=== PATIENT | female | born 1990 | race American Indian/Alaskan Native ===

== ENCOUNTER 2018-10-12 10:59 | Emergency (ER) | payer MEDICAID ==
[2018-10-12 11:22] VITALS: BP 142/78
--- NOTE | 2018-10-12 11:23 | Emergency Department Report ---
Chief Complaint: Dental/Oral Stated Complaint: 6WKS NAUSEA/LEFT JAW PAIN/TOOTH Time Seen by Provider: 10/12/18 11:19 - HPI History of Present Illness: pt states she has right sided dental pain has N/V has not seen dentist pt is 8 weeks , has not seen OB no fever several dental carries present MSE screening note: Focused history and physical exam performed. ED Disposition for MSE Condition: Stable
[2018-10-12] MEDS ORDERED: ZOFRAN ODT PO ONE (12:15)
[2018-10-12] MEDS ORDERED: TYLENOL PO ONE (12:15)
--- NOTE | 2018-10-12 12:20 | Emergency Department Report ---
ED ENT HPI - General Chief complaint: Dental/Oral Stated complaint: 6WKS NAUSEA/LEFT JAW PAIN/TOOTH Time Seen by Provider: 10/12/18 11:19 Source: patient Mode of arrival: Ambulatory Limitations: No Limitations - History of Present Illness Initial comments: Patient is a 27-year-old female who is presenting with several days of right lower jaw pain and swelling. Patient states that she has pain in her teeth and the jaw is swollen for the last 2-3 days. Pain is 6 out of 10 in severity. She has no difficulty swallowing saliva and no problems breathing. Patient is approximately 6 weeks and is very nauseous and vomited 3 times yesterday but none today. Patient denies any fevers cough or congestion. - Related Data Previous Rx's Medication Instructions Recorded Last Taken Type Ondansetron [Zofran Odt] 4 mg PO Q8HR #10 tab.rapdis 10/12/18 Unknown Rx Penicillin V Potassium 500 mg PO BID #14 tablet 10/12/18 Unknown Rx Allergies Allergy/AdvReac Type Severity Reaction Status Date / Time No Known Allergies Allergy Unverified 10/12/18 11:22 ED Dental HPI - General Chief complaint: Dental/Oral Stated complaint: 6WKS NAUSEA/LEFT JAW PAIN/TOOTH Time Seen by Provider: 10/12/18 11:19 Source: patient Mode of arrival: Ambulatory Limitations: No Limitations - Related Data Previous Rx's Medication Instructions Recorded Last Taken Type Ondansetron [Zofran Odt] 4 mg PO Q8HR #10 tab.rapdis 10/12/18 Unknown Rx Penicillin V Potassium 500 mg PO BID #14 tablet 10/12/18 Unknown Rx Allergies Allergy/AdvReac Type Severity Reaction Status Date / Time No Known Allergies Allergy Unverified 10/12/18 11:22 ED Review of Systems ROS: Stated complaint: 6WKS NAUSEA/LEFT JAW PAIN/TOOTH Other details as noted in HPI Comment: All other systems reviewed and negative ED Past Medical Hx - Past Medical History Previous Medical History?: No - Surgical History Past Surgical History?: No - Social History Smoking Status: Never Smoker Substance Use Type: None - Medications Home Medications: Home Medications Medication Instructions Recorded Confirmed Last Taken Type Ondansetron [Zofran Odt] 4 mg PO Q8HR #10 tab.rapdis 10/12/18 Unknown Rx Penicillin V Potassium 500 mg PO BID #14 tablet 10/12/18 Unknown Rx ED Physical Exam - General Limitations: No Limitations General appearance: alert, in no apparent distress - Head Head exam: Present: atraumatic, normocephalic - Eye Eye exam: Present: normal appearance - ENT ENT exam: Present: normal orophraynx, mucous membranes moist, other (pain with palpation of tooth #30 through 32. There is some swelling to the jaw in this area consistent with a facial cellulitis.) - Neck Neck exam: Present: normal inspection, lymphadenopathy - Respiratory Respiratory exam: Present: normal lung sounds bilaterally. Absent: respiratory distress, wheezes, rales, rhonchi - Cardiovascular Cardiovascular Exam: Present: regular rate, normal rhythm. Absent: systolic murmur, diastolic murmur, rubs, gallop - GI/Abdominal GI/Abdominal exam: Present: soft, normal bowel sounds. Absent: distended, tenderness, guarding, rebound, rigid - Extremities Exam Extremities exam: Present: normal inspection - Back Exam Back exam: Present: normal inspection - Neurological Exam Neurological exam: Present: alert, oriented X3 - Psychiatric Psychiatric exam: Present: normal affect, normal mood - Skin Skin exam: Present: warm, dry, intact, normal color. Absent: rash ED Course Vital Signs 10/12/18 11:21 Temperature 98.6 F Pulse Rate 91 H Respiratory 18 Rate Blood Pressure 142/78 O2 Sat by Pulse 99 Oximetry ED Medical Decision Making - Medical Decision Making Patient clinically has a facial cellulitis from a dental abscess. Patient given meds for nausea and she'll be started on Pen-Vee K for the facial cellulitis abscess. Patient referred to dentist for further management and care Critical care attestation.: If time is entered above; I have spent that time in minutes in the direct care of this critically ill patient, excluding procedure time. ED Disposition Clinical Impression: Nausea, Dental abscess, Facial cellulitis Disposition: DC- TO HOME OR SELFCARE Is pt being admited?: No Does the pt Need Aspirin: No Condition: Stable Instructions: Dental Abscess (ED), Morning Sickness (ED) Time of Disposition: 12:20
[2018-10-12] MEDS ORDERED: VEETIDS PO ONE (12:30)
== END 2018-10-12 13:01 | disposition home or self-care (01) ==
LOC: ED 10:59
DX: O99.611 Diseases of the digestive system complicating pregnancy, first trimester (principal); K04.7 Periapical abscess without sinus; O21.9 Vomiting of pregnancy, unspecified; Z3A.01 Less than 8 weeks gestation of pregnancy
CPT/HCPCS: 99282; Q0162

== ENCOUNTER 2019-03-17 12:35 | Outpatient (CLI) | payer MEDICAID ==
[2019-03-17] MEDS ORDERED: LACTATED RINGERS 500 ML IV ONE (13:49)
[2019-03-17 13:55] VITALS: BP 111/70
[2019-03-17] MEDS ORDERED: LACTATED RINGERS 1,000 ML IV SCH (14:00)
[2019-03-17 14:12] LABS: Bacteria,Urine 3+ /HPF (Negative); Bilirubin,Urine NEG (Negative); Blood,Urine MOD (Negative); Color,Urine Amber (Yellow); Mucus,Urine 1+ /HPF
[2019-03-17 14:26] LABS: Amphetamine Screen,Urine PRESUMPTIVE NEGATIVE; Benzodiazepines Screen,Urine PRESUMPTIVE NEGATIVE; Cannabinoid Screen,Urine PRESUMPTIVE NEGATIVE; Cocaine Screen,Urine PRESUMPTIVE NEGATIVE; Methadone Screen,Urine PRESUMPTIVE NEGATIVE; Opiate Screen,Urine PRESUMPTIVE NEGATIVE
[2019-03-17] MEDS ORDERED: ceFAZolin 2 GM in NACL 0.9% 100 ML IV ONE (16:30)
== END 2019-03-17 17:27 | disposition home or self-care (01) ==
LOC: TRG 12:35
PROVIDERS: ATTEND Obstetrics & Gynecology
DX: O62.9 Abnormality of forces of labor, unspecified (principal); O26.893 Other specified pregnancy related conditions, third trimester; R10.9 Unspecified abdominal pain; Z3A.31 31 weeks gestation of pregnancy
CPT/HCPCS: 59025; 80307; 81001; 87086; 96361; 96365; J0690; J7120; 96360

== ENCOUNTER 2019-05-03 06:32 | Inpatient (IN) | payer MEDICAID ==
[2019-05-03] MEDS ORDERED: LACTATED RINGERS 1,000 ML ONE (06:43)
[2019-05-03] MEDS ORDERED: XYLOCAINE 2% INFILTRATI ONE (06:57)
[2019-05-03] MEDS ORDERED: MINERAL OIL PO PRN (06:57)
[2019-05-03] MEDS ORDERED: ZOFRAN IV PRN ×2 (06:57→10:30)
[2019-05-03] MEDS ORDERED: BRETHINE IVP PRN (06:57)
[2019-05-03] MEDS ORDERED: BRETHINE SUB-Q PRN (06:57)
[2019-05-03] MEDS ORDERED: SUBLIMAZE IV PRN (06:57)
[2019-05-03] MEDS ORDERED: AMPICILLIN/NS 2 GM/100 ML 2 GM/100 ML BAG IV ONE (06:57)
--- NOTE | 2019-05-03 06:57 | History and Physical Report ---
History of Present Illness Date of examination: 05/03/19 Chief complaint: Labor History of present illness: Pt is a 28yo BF EDC 05/13/19; EGA 38 4/7 weeks presents to L&D complaining of RUC's q 3-4 mins and dilated 8cms. She received care at [facility] but records are not available and GBS is unknown. Past History Past Medical History: no pertinent history Past Surgical History: no surgical history [employer] History: abnormal PAP smear, chlamydia, herpes (currently on Valtrex), trichomonas Family/Genetic History: none Social history: no significant social history, single - Obstetrical History Expected Date of Delivery: 05/13/19 Actual Gestation: 38 Week(s) 4 Day(s) : 2 Medications and Allergies Allergies Allergy/AdvReac Type Severity Reaction Status Date / Time No Known Allergies Allergy Verified 03/17/19 13:49 Home Medications Medication Instructions Recorded Confirmed Last Taken Type Ondansetron [Zofran Odt] 4 mg PO Q8HR #10 tab.rapdis 10/12/18 Unknown Rx Penicillin V Potassium 500 mg PO BID #14 tablet 10/12/18 Unknown Rx Review of Systems All systems: negative - Physical Exam Breasts: Positive: deferred Cardiovascular: Regular rate Lungs: Positive: Clear to auscultation Abdomen: Positive: normal appearance Genitourinary (Female): Positive: normal external genitalia Vagina: Positive: normal moisture. Negative: ulceration Uterus: Positive: enlarged Anus/Rectum: Positive: normal perianal skin Extremities: Positive: normal - Obstetrical FHR: category 1 Uterine Contraction Monitor Mode: External Cervical Dilatation: 8.5 Cervical Effacement Percentage: 100 station: 0 Uterine Contraction Pattern: Regular Uterine Tone Measurement Phase: Contraction Uterine Contraction Intensity: Moderate Results Result Diagrams: 05/03/19 06:55 All other labs normal. Assessment and Plan - Patient Problems (1) 38 weeks gestation of Onset Date: 05/03/19 Current Visit: Yes Status: Acute Plan to address problem: A: IUP @ 38 4/7 weeks in labor Unknown GBS P: Admit to L&D for expectant vaginal delivery IV Ampicillin Obtain records
[2019-05-03] MEDS ORDERED: PITOCin/NS 30 UNIT/500ML 30 UNITS/500 ML BAG IV SCH (07:00)
[2019-05-03] MEDS ORDERED: PITOCin/NS 20 UNIT/1000ML DRIP 20 UNITS/1,000 ML BAG IV SCH ×2 (07:00→11:00)
[2019-05-03 07:25] LABS: Hematocrit 34.1 % (30.3-42.9); Hemoglobin 11.1 gm/dl (10.1-14.3); Mean Corpuscular HGB Conc 33 % (30-34); Mean Corpuscular Volume 77 fl (79-97); Platelet Count 243 K/mm3 (140-440); Red Blood Count 4.41 M/mm3 (3.65-5.03); Red Cell Distribution Width 19.2 % (13.2-15.2)
[2019-05-03] MEDS: LACTATED RINGERS 1,000 ML IV SCH ×2 (08:33→11:57)
[2019-05-03] MEDS ORDERED: ADRENALIN ONE (09:10)
--- NOTE | 2019-05-03 09:27 | Anesthesia Consultation ---
Anesthesia Consult and Med Hx Date of service: 05/03/19 - Airway Anesthetic Teeth Evaluation: Good ROM Head & Neck: Adequate Mental/Hyoid Distance: Adequate Mallampati Class: Class II Intubation Access Assessment: Probably Good - Pulmonary Exam CTA: Yes - Cardiac Exam Cardiac Exam: RRR - Pre-Operative Health Status ASA Pre-Surgery Classification: ASA2 Proposed Anesthetic Plan: Epidural - Pulmonary Hx Smoking: No Hx Asthma: No Hx Respiratory Symptoms: No SOB: No COPD: No Home Oxygen Therapy: No Hx Pneumonia: No Hx Sleep Apnea: No - Cardiovascular System Hx Hypertension: No Hx Coronary Artery Disease: No Hx Heart Attack/AMI: No Hx Angina: No Hx Percutaneous Transluminal Coronary Angioplasty (PTCA): No Hx Cardia Arrhythmia: No Hx Pacemaker: No Hx Internal Defibrillator: No Hx Valvular Heart Disease: No Hx Heart Murmur: No Hx Peripheral Vascular Disease: No - Central Nervous System Hx Neuromuscular Disorder: No Hx Seizures: No CVA: No Hx Back Pain: No Hx Psychiatric Problems: No - Gastrointestinal Hx Ulcer: No Hx Gastroesophageal Reflux Disease: No - Endocrine Hx Renal Disease: No Hx End Stage Renal Disease: No Hx Cirrhosis: No Hx Liver Disease: No Hx Insulin Dependent Diabetes: No Hx Non-Insulin Dependent Diabetes: No Hx Thyroid Disease: No Hx Hypothyroidism: No Hx Hyperthyroidism: No - Hematic Hx Anemia: No Hx Sickle Cell Disease: No - Other Systems Hx Alcohol Use: No
[2019-05-03] MEDS ORDERED: MARCAINE 0.25% INFILTRATI ONE (09:36)
--- NOTE | 2019-05-03 09:41 | Procedure Note ---
OB Delivery Note - Delivery Date of Delivery: 05/03/19 Surgeon: PASHA ORR Estimated blood loss: 200cc - Vaginal Delivery presentation: vertex Delivery position: OA Intrapartum events: meconium, precipitous labor- <3hr Delivery induction: none Delivery augmentation: rupture of membranes Delivery monitor: external FHT, external uterine Route of delivery: Delivery placenta: spontaneous Delivery cord: 3 umbilical vessels Episiotomy: none Delivery laceration: 1st degree (labial) Anesthesia: epidural Delivery comments: delivered OA and placed on Mom's chest for [id number] bonding and delayed cord clamping, cut by sister. Peds/RT in attendance for meconium fluid. - A at 1 minute: 8 at 5 minutes: 9 Infant Gender: Female (3747gms)
[2019-05-03] MEDS ORDERED: BENADRYL PO PRN (10:30)
[2019-05-03] MEDS ORDERED: COLACE PO SCH (10:30)
[2019-05-03] MEDS ORDERED: LANSINOH TP PRN (10:30)
[2019-05-03] MEDS ORDERED: NALOXONE IV PRN (10:30)
[2019-05-03] MEDS ORDERED: fentaNYL-BUPIV 2 MCG/ML-0.125% 200 MCG/100 ML BAG EPIDURAL SCH (10:30)
[2019-05-03] MEDS ORDERED: PHENERGAN PO PRN (10:30)
[2019-05-03] MEDS ORDERED: TUCKS PAD TP PRN (10:30)
[2019-05-03] MEDS ORDERED: TYLENOL PO PRN (10:30)
[2019-05-03] MEDS ORDERED: AMPICILLIN/NS 1 GM/50 ML 1 GM/50 ML BAG IV SCH (10:58)
[2019-05-03] MEDS ORDERED: IBUPROFEN PO SCH (11:00)
[2019-05-03] MEDS ORDERED: DULCOLAX PR PRN (11:00)
[2019-05-03] MEDS ORDERED: PHENERGAN PR PRN (11:00)
[2019-05-03] MEDS ORDERED: SODIUM CHLORIDE FLUSH SYRINGE 10 ML IV PRN (11:00)
[2019-05-03] MEDS: PRENATAL VITAMIN PO SCH (11:52)
[2019-05-03] MEDS: FEOSOL PO SCH ×2 (11:52→23:05)
[2019-05-03 15:46] LABS: Bilirubin,Urine NEG (Negative); Blood,Urine LG (Negative); Color,Urine Red (Yellow); Urobilinogen,Urine < 2.0 mg/dL (<2.0)
[2019-05-03 15:56] LABS: RBC,Urine > 182.0 /HPF (0.0-6.0)
[2019-05-03 15:57] LABS: Amphetamine Screen,Urine PRESUMPTIVE NEGATIVE; Benzodiazepines Screen,Urine PRESUMPTIVE NEGATIVE; Cannabinoid Screen,Urine PRESUMPTIVE NEGATIVE; Cocaine Screen,Urine PRESUMPTIVE NEGATIVE; Methadone Screen,Urine PRESUMPTIVE NEGATIVE; Opiate Screen,Urine PRESUMPTIVE NEGATIVE; WBC,Urine > 182.0 /HPF (0.0-6.0)
[2019-05-03] MEDS: MOTRIN PO SCH (18:30)
[2019-05-03] MEDS ORDERED: DERMOPLAST TP PRN (20:51)
[2019-05-03] MEDS: NORCO 5/325 PO PRN (21:02)
[2019-05-03] MEDS ORDERED: MILK OF MAGNESIA PO PRN (22:00)
[2019-05-03 22:49] LABS: Hematocrit 30.8 % (30.3-42.9); Hemoglobin 9.7 gm/dl (10.1-14.3)
[2019-05-03] MEDS: COLACE PO SCH (23:05)
[2019-05-04] MEDS: NORCO 5/325 PO PRN (02:37)
[2019-05-04] MEDS: MOTRIN PO SCH ×4 (05:20→20:21)
[2019-05-04] MEDS ORDERED: BOOSTRIX IM ONE (06:00)
--- NOTE | 2019-05-04 08:45 | Progress Note ---
Assessment and Plan - Patient Problems (1) 38 weeks gestation of Onset Date: 05/03/19 Current Visit: Yes Status: Resolved (2) (normal spontaneous vaginal delivery) Onset Date: 05/04/19 Current Visit: Yes Status: Resolved Plan to address problem: A: S/P - PPD #1 Doing well Asymptomatic anemia - stable P: May go home tomorrow. Subjective - Subjective Date of service: 05/04/19 Principal diagnosis: s/p - PPD #1 Interval history: Pt is feeling well without complaints. Bleeding improved. Patient reports: appetite normal, voiding normally, pain well controlled, flatus, ambulating normally, no dizzy ambulation, no nauseated [place]: doing well, bottle feeding Objective - Vital Signs Latest vital signs: Vital Signs Temp Pulse Resp BP BP Pulse Ox 05/04/19 00:00 98.7 F 69 18 102/79 05/03/19 19:30 98.7 F 66 18 119/78 05/03/19 17:49 97.3 F L 77 18 119/66 05/03/19 11:14 72 124/71 05/03/19 10:56 80 100 05/03/19 10:52 77 122/74 05/03/19 10:51 76 98 05/03/19 10:46 75 100 05/03/19 10:41 89 100 05/03/19 10:38 75 120/69 05/03/19 10:36 74 99 05/03/19 10:32 77 88 05/03/19 10:31 87 99 05/03/19 10:26 93 H 99 05/03/19 10:24 90 128/76 05/03/19 10:23 89 81 L 05/03/19 10:21 92 H 98 05/03/19 10:16 76 125/64 100 05/03/19 10:11 86 100 05/03/19 10:06 80 99 05/03/19 10:01 92 H 100 05/03/19 09:56 91 H 114/72 96 05/03/19 09:55 88 91 05/03/19 09:51 110 H 100 05/03/19 09:46 82 100 05/03/19 09:45 79 L 05/03/19 09:38 83 119/62 05/03/19 09:35 78 130/69 05/03/19 09:22 96 H 121/74 05/03/19 09:19 126 H 116/63 05/03/19 09:17 112 H 105/59 05/03/19 09:16 103 H 121/71 99 05/03/19 09:15 116 H 109/57 05/03/19 09:14 103 H 127/68 05/03/19 09:13 144 H 147/92 05/03/19 09:11 125 H 126/73 97 05/03/19 09:10 134 H 117/58 05/03/19 09:09 82 94/55 05/03/19 09:08 107 H 91/42 05/03/19 09:06 102 H 99 05/03/19 09:05 100 H 87/52 05/03/19 09:01 85 124/71 84 05/03/19 09:00 96 H 97 05/03/19 08:55 101 H 99 05/03/19 08:54 105 H 0 L 05/03/19 08:50 110 H 98 Intake and Output 05/03/19 05/04/19 05/04/19 22:59 06:59 14:59 Intake Total 480 Output Total 900 Balance -420 Intake: Oral 480 Output: Urine 900 Void 900 Other: Total, Intake Amount 480 Total, Output Amount 900 # Voids Void 2 1 - Exam Breasts: Present: deferred Abdomen: Present: normal appearance, soft Uterus: Present: normal, firm, fundal height below umbilicus Extremities: Present: normal - Labs Labs: Abnormal lab results 05/03/19 05/03/19 Range/Units 15:10 21:08 Hgb 9.7 L (10.1-14.3) gm/dl Urine WBC (Auto) > 182.0 H (0.0-6.0) /HPF Laboratory Tests 05/03/19 05/03/19 05/03/19 06:55 06:55 06:55 WBC 10.4 RBC 4.41 Hgb 11.1 Hct 34.1 MCV 77 L MCH 25 L MCHC 33 RDW 19.2 H Plt Count 243 Urine Color Urine Turbidity Urine pH Ur Specific [place] Urine Protein Urine Glucose (UA) Urine Ketones Urine Blood Urine Nitrite Urine Bilirubin Urine Urobilinogen Ur Leukocyte Esterase Urine WBC (Auto) Urine RBC (Auto) U Epithel Cells (Auto) Urine WBC Clumps Urine Opiates Screen Urine Methadone Screen Ur Barbiturates Screen Ur Phencyclidine Scrn Ur Amphetamines Screen U Benzodiazepines Scrn Urine Cocaine Screen U Marijuana (THC) Screen Drugs of Abuse Note Syphilis IgG Antibody Hep Bs Antigen Rubella IgG Antibody Immune Blood Type O POSITIVE Antibody Screen Negative 05/03/19 05/03/19 05/03/19 06:55 06:55 15:10 WBC RBC Hgb Hct MCV MCH MCHC RDW Plt Count Urine Color Red Urine Turbidity Slightly-cloudy Urine pH 7.0 Ur Specific [place] 1.008 Urine Protein 100 mg/dl Urine Glucose (UA) Neg Urine Ketones Neg Urine Blood Lg Urine Nitrite Neg Urine Bilirubin Neg Urine Urobilinogen < 2.0 Ur Leukocyte Esterase Mod Urine WBC (Auto) > 182.0 H Urine RBC (Auto) > 182.0 U Epithel Cells (Auto) 1.0 Urine WBC Clumps 2+ Urine Opiates Screen Urine Methadone Screen Ur Barbiturates Screen Ur Phencyclidine Scrn Ur Amphetamines Screen U Benzodiazepines Scrn Urine Cocaine Screen U Marijuana (THC) Screen Drugs of Abuse Note Syphilis IgG Antibody Non-reactive Hep Bs Antigen Non-reactive Rubella IgG Antibody Blood Type Antibody Screen 05/03/19 05/03/19 15:10 21:08 WBC RBC Hgb 9.7 L Hct 30.8 MCV MCH MCHC RDW Plt Count Urine Color Urine Turbidity Urine pH Ur Specific [place] Urine Protein Urine Glucose (UA) Urine Ketones Urine Blood Urine Nitrite Urine Bilirubin Urine Urobilinogen Ur Leukocyte Esterase Urine WBC (Auto) Urine RBC (Auto) U Epithel Cells (Auto) Urine WBC Clumps Urine Opiates Screen Presumptive negative Urine Methadone Screen Presumptive negative Ur Barbiturates Screen Presumptive negative Ur Phencyclidine Scrn Presumptive negative Ur Amphetamines Screen Presumptive negative U Benzodiazepines Scrn Presumptive negative Urine Cocaine Screen Presumptive negative U Marijuana (THC) Screen Presumptive negative Drugs of Abuse Note Disclamer Syphilis IgG Antibody Hep Bs Antigen Rubella IgG Antibody Blood Type Antibody Screen
--- NOTE | 2019-05-04 09:06 | Discharge Summary ---
Providers - Providers Date of Admission: 05/03/19 06:33 Date of discharge: 05/05/19 Attending physician: PASHA ORR Primary care physician: PASHA ORR Hospitalization Reason for admission: active labor, IUP at term Delivery: Episiotomy: none Laceration: 1st degree Incision: normal Other procedures: none complications: none Discharge diagnosis: IUP at term delivered baby: female Hospital course: Unremarkable. Condition at discharge: Good Disposition: DC-01 TO HOME OR SELFCARE - Discharge Diagnoses (1) 38 weeks gestation of Status: Resolved (2) (normal spontaneous vaginal delivery) Status: Resolved Plan - Discharge Medications Prescriptions: Ferrous Sulfate [Feosol 325 MG tab] 325 mg PO BID #60 tablet Ibuprofen Oral Liqd [Motrin Oral Liq 100 mg/5 ml] 600 mg PO Q6HR #30 oral.liqd Vit-Fe Fumar-FA [ Vitamin] 1 each PO QDAY #30 tablet - Provider Discharge Summary Activity: routine, no sex for 6 weeks, no heavy lifting 4 weeks, no strenuous exercise Diet: routine Instructions: routine Additional instructions: [] Smoking cessation referral if applicable(refer to patient education folder for contact #) [] Refer to [facility]'s [facility] Booklet Call your doctor immediately for: * Fever > 100.5 * Heavy vaginal bleeding ( >1 pad per hour) * Severe persistent headache * Shortness of breath * Reddened, hot, painful area to leg or breast * Drainage or odor from incision. * Keep incision clean and dry at all times and follow doctor's instructions regarding bathing/showering - Follow up plan Follow up: PASHA ORR MD [Primary Care Provider] - 6 Weeks DAVID SOLIZ MD [Referring] - 6 Weeks
[2019-05-04] MEDS ORDERED: M-M-R II VACCINE SUB-Q ONE (11:00)
[2019-05-04] MEDS: FEOSOL PO SCH ×2 (11:47→22:06)
[2019-05-04] MEDS: PRENATAL VITAMIN PO SCH (11:47)
[2019-05-04] MEDS: COLACE PO SCH ×2 (22:06→22:15)
[2019-05-05] MEDS: MOTRIN PO SCH ×2 (01:42→10:12)
[2019-05-05 05:49] LABS: HIV-1 Antibody Differentiation SEE SCANNED RESULTS; HIV-2 Antibody Differentiation SEE SCANNED RESULTS
[2019-05-05] MEDS: PRENATAL VITAMIN PO SCH (09:54)
[2019-05-05] MEDS: FEOSOL PO SCH (09:54)
[2019-05-05 09:57] VITALS: BP 119/76
== END 2019-05-05 13:50 | disposition home or self-care (01) | DRG 775 ==
LOC: TRG 06:32 → LD 06:33 → OB 12:18
PROVIDERS: ADMIT Obstetrics & Gynecology; ATTEND Obstetrics & Gynecology
PROC: 10E0XZZ Delivery of Products of Conception, External Approach (ICD-10-PCS; principal; 2019-05-03)
PROC: 3E0234Z Introduction of Serum, Toxoid and Vaccine into Muscle, Percutaneous Approach (ICD-10-PCS; 2019-05-03)
PROC: 3E0R3BZ Introduction of Anesthetic Agent into Spinal Canal, Percutaneous Approach (ICD-10-PCS; 2019-05-03)
PROC: 00HU33Z Insertion of Infusion Device into Spinal Canal, Percutaneous Approach (ICD-10-PCS; 2019-05-03)
PROC: 0UQMXZZ Repair Vulva, External Approach (ICD-10-PCS; 2019-05-03)
DX: O62.3 Precipitate labor (principal); Z3A.38 38 weeks gestation of pregnancy; Z37.0 Single live birth; Z23 Encounter for immunization; O77.0 Labor and delivery complicated by meconium in amniotic fluid; O70.0 First degree perineal laceration during delivery; O90.81 Anemia of the puerperium; D64.9 Anemia, unspecified
CPT/HCPCS: 36415; 80307; 81001; 85014; 85018; 85027; 86592; 86689; 86706; 86762; 86850; 86900; 86901; 88307; 96360; 96361; 96365; G0378; J0171; J0290; J2590; J7120